=== PATIENT | female | born 1970 ===

== ENCOUNTER 2017-11-16 15:22 | Emergency (ER) | payer OTHER ==
[2017-11-16 15:28] VITALS: RESP 16; O2SAT 100
[2017-11-16] MEDS ORDERED: Sodium Chloride 0.9% 1,000 ML IV STA (15:45)
--- NOTE | 2017-11-16 15:59 | ED PDOC ---
HPI: Abdomen Time Seen by Provider: 11/16/17 15:30 Chief Complaint (Nursing): Abdominal Pain Chief Complaint (Provider): Abdominal Pain History Per: Patient History/Exam Limitations: no limitations Onset/Duration Of Symptoms: Days (x4 ) Current Symptoms Are (Timing): Still Present Location Of Pain/Discomfort: RLQ, Other (right inguinal) Quality Of Discomfort: "Pain" Associated Symptoms: Constipation, Urinary Symptoms (mild hesitancy) Additional Complaint(s): 46 year old female with a history of diabetes and chronic back pain presents to the ED with constant, worsening right lower quadrant and right groin pain, onset 4 days ago. Pain radiates to her back and is associated with mild constipation and hesitancy of urine. Pain worsens when she walks, but she has not taken any medications for pain. Normally she takes Tramadol. However, since moving to [place], her insurance will not cover a refill. Denies frequency, incontinence, fever, chills, nausea, vomiting, and loss of appetite. PMD: none provided Past Medical History Reviewed: Historical Data, Nursing Documentation, Vital Signs Vital Signs: Last Vital Signs Temp 96.8 F L 11/16/17 15:26 Pulse 64 11/16/17 15:26 Resp 16 11/16/17 15:26 BP 122/78 11/16/17 15:26 Pulse Ox 100 11/16/17 18:26 - Medical History PMH: Arthritis, Diabetes Denies: Chronic Kidney Disease - Surgical History Surgical History: Cholecystectomy Other surgeries: total hysterectomy - Family History Family History: States: CAD, Diabetes - Social History Current smoker - smoking cessation education provided: Yes Alcohol: Occasional Drugs: Denies - Home Medications Home Medications: Ambulatory Orders Medication Instructions Recorded Naproxen 375 mg PO BID PRN #20 tablet 08/08/17 Ciprofloxacin [Cipro] 500 mg PO Q12H #14 tab 08/20/17 Insulin Aspart, Recombinant 12 unit SC AC #1 unit 08/20/17 [Novolog] Insulin Glargine, Recombina 24 unit SC HS unit 08/20/17 [Lantus] Nicotine 21 mg/24 hr [Nicoderm Cq] 1 patch TD DAILY #10 patch 08/20/17 Pregabalin [Lyrica] 75 mg PO BID #60 cap 08/20/17 Saccharomyces Boulardi [Florastor] 250 mg PO BID #74 cap 08/20/17 Naproxen [Naprosyn] 1 tab PO BID PRN #30 tab 11/16/17 traMADol [Ultram] 50 mg PO TID PRN #15 tab 11/16/17 - Allergies Allergies/Adverse Reactions: Allergies Allergy/AdvReac Type Severity Reaction Status Date / Time No Known Allergies Allergy Verified 11/16/17 15:26 Review of Systems ROS Statement: Except As Marked, All Systems Reviewed And Found Negative Constitutional: Negative for: Fever, Chills Gastrointestinal: Positive for: Abdominal Pain (RLQ and right groin pain; radiates to back ). Negative for: Nausea, Vomiting Genitourinary Female: Positive for: Other (urinary hesitancy). Negative for: Dysuria, Frequency, Incontinence Physical Exam - Reviewed Nursing Documentation Reviewed: Yes Vital Signs Reviewed: Yes - Physical Exam Appears: Positive for: Non-toxic, In Acute Distress (mild painful distress) Head Exam: Positive for: ATRAUMATIC, NORMAL INSPECTION, NORMOCEPHALIC Skin: Positive for: Warm, Dry Eye Exam: Positive for: EOMI, PERRL ENT: Negative for: Pharyngeal Erythema, Tonsillar Exudate Neck: Positive for: Painless ROM, Supple Cardiovascular/Chest: Positive for: Regular Rate, Rhythm. Negative for: Murmur Respiratory: Positive for: Normal Breath Sounds. Negative for: Wheezing Gastrointestinal/Abdominal: Positive for: Tenderness (RLQ tenderness to palpation; right inguinal tenderness), Other (positive obturator's and psoas; positive McBurney's sign). Negative for: Mass, Guarding, Rebound, Hernia Back: Positive for: Normal Inspection. Negative for: Decreased ROM Extremity: Positive for: Normal ROM. Negative for: Deformity Lymphatic: Negative for: Adenopathy, Inguinal Node Tenderness Neurologic/Psych: Positive for: Alert. Negative for: Motor/Sensory Deficits - Laboratory Results Result Diagrams: 11/16/17 16:14 11/16/17 16:14 - ECG O2 Sat by Pulse Oximetry: 100 (RA) Pulse Ox Interpretation: Normal Medical Decision Making Medical Decision Makin:44 Impression: abdominal pain Differential diagnoses include but are not limited to: appendicitis, colitis, mesenteric adenitis, hernia Initial Plan: --Abd & Pelvis CT --CMP --UDS --Lipase --U Dip --U preg --CBC --Tylenol 975 mg PO --Toradol 30 mg IV --NS IV --Ultram 50 mg PO Time: 1811 CT RESULTS FINDINGS: Lower thorax: No acute findings. ABDOMEN: Liver: Normal. No mass. Gallbladder and bile ducts: Status post cholecystectomy. Pancreas: Normal. No ductal dilation. Spleen: Normal. No splenomegaly. Adrenals: Normal. No mass. Kidneys and ureters: Normal. No hydronephrosis. Stomach and bowel: Normal. No obstruction. No mucosal thickening. Appendix: The appendix is seen and is normal in appearance. PELVIS: Bladder: There is a small amount of air within the bladder and clinical correlation is recommended for possible recent instrumentation. Reproductive: Unremarkable as visualized. ABDOMEN and PELVIS: Intraperitoneal space: Normal. No free air. No significant fluid collection. Bones/joints: No acute fracture. No dislocation. Soft tissues: Unremarkable. Vasculature: Normal. No abdominal aortic aneurysm. Lymph nodes: Normal. No enlarged lymph nodes. IMPRESSION: There is a small amount of air within the bladder and clinical correlation is recommended for possible recent instrumentation. Remainder of findings as described above. Thank you for allowing us to participate in the care of your patient. Dictated and Authenticated by: Rochelle Hernández MD 11/16/2017 6:12 PM Eastern Time ([place] & [place]) Labs unremarkable except for cocaine in UDS. DW pt findings. Pt denies recent nunes. Urine dip negative for any abnormalities. Can followup as outpatient with clinic. Stable for dc. Scribe Attestation: Documented by Mitali Lombardi, acting as a scribe for Janine Hurtado MD Provider Scribe Attestation: All medical record entries made by the Scribe were at my direction and personally dictated by me. I have reviewed the chart and agree that the record accurately reflects my personal performance of the history, physical exam, medical decision making, and the department course for this patient. I have also personally directed, reviewed, and agree with the discharge instructions and disposition. Disposition - Clinical Impression Clinical Impression: Abdominal pain Counseled Patient/Family Regarding: Studies Performed, Diagnosis, Need For Followup, Rx Given (reviewed needs for narcotics for pain and that further pain meds to be obtained from PMD, not ER) - Disposition Referrals: [facility] [Outside] - 11/18/17 (CALL ON FRIDAY FOR A FOLLOWUP APPOINTMENT SOON POSSIBLE) Disposition: Routine/Home Disposition Time: 18:33 Condition: IMPROVED Additional Instructions: YOU WILL NEED TO FOLLOW UP AT CLINIC OR OTHER PMD OR PAIN MANAGEMENT FOR ANY FURTHER NARCOTIC MEDICATIONS Prescriptions: Naproxen [Naprosyn] 1 tab PO BID PRN #30 tab PRN Reason: Pain traMADol [Ultram] 50 mg PO TID PRN #15 tab PRN Reason: SEVERE PAIN ONLY Instructions: Acute Abdomen (Belly Pain), Adult (DC), Chronic Pain (DC), Taking Narcotics Safely
[2017-11-16 16:23] LABS: BASO # 0.1 K/uL (0.0-0.2); BASO % 0.7 % (0.0-2.0); EOS # 0.1 K/uL (0.0-0.7); LYMPH # 2.4 K/uL (1.0-4.3); LYMPH % 35.9 % (20.0-40.0); MEAN CELL VOLUME 88.2 fl (81.0-99.0); MEAN CORPUSCULAR HEMOGLOBIN 30.1 pg (27.0-31.0); MEAN CORPUSCULAR HGB CONC 34.1 g/dL (33.0-37.0); MEAN PLATELET VOLUME 8.7 fl (7.2-11.7); MONO # 0.5 K/uL (0.0-0.8); MONO % 7.4 % (0.0-10.0); NEUT # 3.7 K/uL (1.8-7.0); RBC 4.65 Mil/uL (3.80-5.20); RED CELL DISTRIBUTION WIDTH 13.3 % (11.5-14.5); WHITE BLOOD COUNT 6.8 K/uL (4.8-10.8)
[2017-11-16 16:29] LABS: ALBUMIN 4.1 g/dL (3.5-5.0); BLOOD UREA NITROGEN 16 mg/dl (7-17); CALCIUM 9.8 mg/dL (8.4-10.2); GFR NON-AFRICAN AMERICAN > 60
[2017-11-16 16:30] LABS: ALB/GLOB RATIO 1.2 (1.0-2.1); ALT/SGPT 22 U/L (9-52); AST/SGOT 25 U/L (14-36); LIPASE 23 U/L (23-300)
[2017-11-16] MEDS ORDERED: Sodium Chloride 0.9% 50 ML IV ONE (16:40)
[2017-11-16] MEDS ORDERED: Iohexol 300 100 ML IJ ONE (16:40)
[2017-11-16 17:12] LABS: BARBITURATES, UR NEGATIVE (NEGATIVE); BENZODIAZEPINES, UR NEGATIVE (NEGATIVE); OPIATES, UR NEGATIVE (NEGATIVE); PHENCYCLIDINE, UR NEGATIVE (NEGATIVE)
--- NOTE | 2017-11-16 18:13 | CT ---
EXAM: CT Abdomen and Pelvis With Intravenous Contrast EXAM DATE/TIME: 11/16/2017 3:44 PM CLINICAL HISTORY: 46 years old, female; Pain; Abdominal pain; Localized; Right lower quadrant (rlq); Prior surgery; Surgery date: 6+ months; Surgery type: 2 c-sections; Additional info: Rlq pain TECHNIQUE: Axial computed tomography images of the abdomen and pelvis with intravenous contrast. All CT scans at this facility use at least one of these dose optimization techniques: automated exposure control; mA and/or kV adjustment per patient size (includes targeted exams where dose is matched to clinical indication); or iterative reconstruction. Coronal and sagittal reformatted images were created and reviewed. CONTRAST: 95 ml of omnipaque-300 administered intravenously. COMPARISON: No relevant prior studies available. FINDINGS: Lower thorax: No acute findings. ABDOMEN: Liver: Normal. No mass. Gallbladder and bile ducts: Status post cholecystectomy. Pancreas: Normal. No ductal dilation. Spleen: Normal. No splenomegaly. Adrenals: Normal. No mass. Kidneys and ureters: Normal. No hydronephrosis. Stomach and bowel: Normal. No obstruction. No mucosal thickening. Appendix: The appendix is seen and is normal in appearance. PELVIS: Bladder: There is a small amount of air within the bladder and clinical correlation is recommended for possible recent instrumentation. Reproductive: Unremarkable as visualized. ABDOMEN and PELVIS: Intraperitoneal space: Normal. No free air. No significant fluid collection. Bones/joints: No acute fracture. No dislocation. Soft tissues: Unremarkable. Vasculature: Normal. No abdominal aortic aneurysm. Lymph nodes: Normal. No enlarged lymph nodes. IMPRESSION: There is a small amount of air within the bladder and clinical correlation is recommended for possible recent instrumentation. Remainder of findings as described above.
[2017-11-16 19:02] VITALS: BP 124/79; PULSE 77; TEMP 98.2
== END 2017-11-16 19:02 | disposition home or self-care (01) ==
LOC: H.ER 15:22
DX: R10.31 Right lower quadrant pain (principal); K59.00 Constipation, unspecified; E11.9 Type 2 diabetes mellitus without complications; Z79.4 Long term (current) use of insulin
CPT/HCPCS: 74177; 80053; 80324; 80345; 80346; 80349; 80353; 80358; 80361; 81025; 83690; 83992; 85025; 96374; 99284; J1885; J7030; Q9967